=== PATIENT | male | born 1950 ===

== ENCOUNTER → 2025-01-20 10:26 | Outpatient (CLI) | payer OTHER, SELFPAY ==
--- NOTE | 2025-01-20 10:31 | DI.CT.S_ITS ---
PROCEDURE: CT HEAD/BRAIN WO CON INDICATIONS: Syncope and collapse TECHNIQUE: Noncontrast 4.5 mm thick angled axial sections acquired from the foramen magnum to the vertex, with coronal and sagittal reformats. For radiation dose reduction, the following was used: automated exposure control, adjustment of mA and/or kV according to patient size. COMPARISON: None. FINDINGS: Image quality: Diagnostic. CSF spaces: Basal cisterns are patent. No extra-axial fluid collections. Ventricles are normal in size and shape. Brain: No midline shift. No intracranial mass effect or hemorrhage. Garcia- white matter interface is normal. Skull and face: Calvarium and visualized facial bones are intact. There are indeterminate lucencies in the bilateral occipital bones (3/7, 3/3). Sinuses: Sphenoid sinus mucus retention cysts versus polyps. Visualized sinuses and mastoids are otherwise clear. IMPRESSION: 1. No acute intracranial abnormality. 2. Indeterminate lucent lesions in the bilateral occipital bones. Recommend correlation with clinical history and further evaluation with MR or bone scan as appropriate. Dictated by: Hudson Verdugo M.D. on 01/22/2025 at 13:03 Approved by: Hudson Verdugo M.D. on 01/22/2025 at 13:11
== END ==
PROVIDERS: PCP Family Medicine; Referring Provider Family Medicine; Visit Provider Family Medicine
DX: R55 Syncope and collapse (principal); M89.9 Disorder of bone, unspecified
CPT/HCPCS: 70450

== ENCOUNTER → 2025-02-04 12:40 | Outpatient (CLI) | payer OTHER, SELFPAY ==
--- NOTE | 2025-02-04 | DI.MRI.S_ITS ---
PROCEDURE: MR HEAD/BRAIN WO CON INDICATIONS: memory issues TECHNIQUE: Non-contrast axial T1 spin echo, axial T2 fast spin echo, sagittal and axial FLAIR, coronal T2 fast spin echo, axial gradient echo, axial diffusion and ADC through the brain. COMPARISON: None. FINDINGS: Image quality: Excellent. CSF spaces: Ventricles appear symmetric in size and shape. Basal cisterns are patent. No extra-axial fluid collections. Brain: No intracranial bleeds or mass effects. There is cerebral volume loss for age. There are periventricular and deep white matter chronic small vessel ischemic changes. Brainstem appears normal. Diffusion-weighted images show no acute infarct. No chronic ischemic insults. Normal intravascular flow voids are present. Skull and face: Calvarial bone marrow is normal in signal. Orbits are normal. Sinuses: Sinuses and mastoids are clear. IMPRESSION: 1. Volume loss and small vessel ischemic disease. 2. No acute process. No recent infarct. Dictated by: Amos Fontenot M.D. on 02/06/2025 at 12:25 Approved by: Amos Fontenot M.D. on 02/06/2025 at 12:27
== END ==
LOC: MRI 12:41
PROVIDERS: PCP Family Medicine; Referring Provider Family Medicine; Visit Provider Family Medicine
DX: R55 Syncope and collapse (principal); I67.89 Other cerebrovascular disease
CPT/HCPCS: 70551

== ENCOUNTER → 2025-02-23 11:03 | Outpatient (CLI) | payer OTHER, SELFPAY ==
--- NOTE | 2025-02-23 11:05 | DI.US.S_ITS ---
PROCEDURE: US CAROTID DOPPLER BI
== END ==
LOC: US 11:04
PROVIDERS: PCP Family Medicine; Referring Provider Family Medicine; Visit Provider Family Medicine
DX: I65.23 Occlusion and stenosis of bilateral carotid arteries (principal); R55 Syncope and collapse
CPT/HCPCS: 93880